=== PATIENT | female | born 1970 | race Caucasian/White ===

== ENCOUNTER 2020-05-30 17:56 | Emergency (ER) | payer OTHER ==
[~2020-05-30 17:56] MED LIST: LEXAPRO10 MG PO; NORCO 5-325 TA1 EACH PO; PRINIVIL20 MG PO; ZANTAC150 MG PO
[2020-05-30 19:12] LABS: HEMOGLOBIN 12.9 gm/dl (12.3-15.3); RED BLOOD COUNT 4.65 M/UL (4.00-5.10); WHITE BLOOD COUNT 5.3 K/UL (4.5-11.0)
[2020-05-30 19:23] LABS: BUN/CREATININE RATIO 13 (0-10)
[2020-05-30] MEDS ORDERED: DECADRON6 MG PO (19:49)
[2020-05-30] MEDS ORDERED: DOXYCYCLINE MO100 MG PO (19:49)
[2020-05-30] MEDS ORDERED: VENTOLIN HFA 66.7 GM INH (19:49)
== END 2020-05-30 20:11 | disposition home or self-care (01) ==
LOC: ER1 17:56
PROVIDERS: Physician Assistant
DX: U07.1 COVID-19 (principal); I10 Essential (primary) hypertension; Z88.8 Allergy status to other drugs, medicaments and biological substances
CPT/HCPCS: 71045; 80053; 85025; 85652; 86140; 87040; 87081; 87880; 99283

== ENCOUNTER → 2021-07-09 | Outpatient (CLI) | payer OTHER ==
[~2021-07-09] MED LIST changes: +BUSPIRONE HCL5 MG PO; +DECADRON6 MG PO; +DOCUSATE SODIU250 MG PO; +DOXYCYCLINE MO100 MG PO; +HYDROCODONE-AC1 EACH PO; +IBUPROFEN600 MG PO; +LISINOPRIL20 MG PO; +PREVACID 30 MG30 MG PO; +PROVERA10 MG PO; +VENTOLIN HFA 66.7 GM INH; +[UNRECOGNIZED DRUG - OTHER] PO
[2021-07-09 09:55] LABS: HEMOGLOBIN 13.7 gm/dl (12.3-15.3); RED BLOOD COUNT 4.46 M/UL (4.00-5.10)
[2021-07-09 10:25] LABS: BUN/CREATININE RATIO 12 (0-10)
== END ==
LOC: OPSV2 08:00
PROVIDERS: Obstetrics & Gynecology
DX: Z01.818 Encounter for other preprocedural examination (principal); N93.9 Abnormal uterine and vaginal bleeding, unspecified
CPT/HCPCS: 36415; 80053; 81001; 85025; 93005

== ENCOUNTER → 2021-07-12 | Day surgery (SDC) | payer OTHER | END | disposition home or self-care (01) | LOC: OR 05:40 | DX: N83.01 Follicular cyst of right ovary (principal); N83.8 Other noninflammatory disorders of ovary, fallopian tube and broad ligament; N93.9 Abnormal uterine and vaginal bleeding, unspecified; K21.9 Gastro-esophageal reflux disease without esophagitis; N94.6 Dysmenorrhea, unspecified; I10 Essential (primary) hypertension; Z90.49 Acquired absence of other specified parts of digestive tract; Z88.8 Allergy status to other drugs, medicaments and biological substances; Z98.890 Other specified postprocedural states; Z20.822 Contact with and (suspected) exposure to COVID-19; Z86.16 Personal history of COVID-19 | CPT/HCPCS: 36415; 84702; C1769; J0690; J1100; J1170; J2001; J2250; J2405; J2704; J2710; J3010; J7120 ==